=== PATIENT | male | born 1980 | race Hispanic/Latino ===

== ENCOUNTER 2017-10-10 04:11 | Emergency (ER) | payer SELFPAY ==
[2017-10-10] MEDS ORDERED: NA CHLORIDE 0.9% 1,000 ML ONE ×2 (05:17→09:37)
[2017-10-10] MEDS ORDERED: LIDOCAINE VISCOUS 2% SOLN 15 ML UDC ONE (05:17)
[2017-10-10] MEDS ORDERED: MAGNE/ALUM HYDROXD 30 ML UCUP ONE (05:17)
[2017-10-10 05:19] LABS: Absolute Lymphocytes (CBC) 2.6 K/uL (0.7-4.9); Absolute Neutrophil 11.2 K/uL (1.8-8.0); Basophils % 0.9 % (0-1.3); Eosinophils % 1.3 % (0-4.4); Hematocrit 47.3 % (39.6-49.0); Lymphocytes % 17.4 % (15.3-44.8); MCV 89.3 fL (80-100); MPV 8.8 fL (7.6-11.3); Monocytes % 6.9 % (3.3-12.3)
[2017-10-10 05:25] LABS: Bicarbonate 29 mEq/L (21-31); Glucose Level 93 mg/dL (65-120); Potassium 3.4 mEq/L (3.6-5.0); Sodium Level 141 mEq/L (135-145)
[2017-10-10 05:26] LABS: BUN Blood Urea Nitrogen 13 mg/dL (6-20)
[2017-10-10 05:36] LABS: Alcohol Serum/Plasma < 10 mg/dl
[2017-10-10] MEDS ORDERED: MORPHINE 4 MG/ML SYR ONE ×2 (06:25→09:37)
[2017-10-10] MEDS ORDERED: POTASSIUM 25 MEQ EFFERV TAB ONE (06:26)
[2017-10-10] MEDS ORDERED: CEFTRIAXONE/SWI 1gm 1 GM/10 ML SYR ONE (06:26)
--- NOTE | 2017-10-10 07:04 | EDPHYS ---
Physician Documentation [facility] Name: Manish Flood Age: 36 yrs Sex: Male : 1980 Arrival Date: 10/10/2017 Time: 04:12 Bed 13 Private MD: ED Physician Juan Fields HPI: 10/10 04:40 This 36 yrs old Male presents to ER via Ambulatory with complaints of Feels pkl something in throat after vomiting. 04:40 The patient or guardian reports the patient has a suspected foreign body, Onset: The pkl symptoms/episode began/occurred just prior to arrival, 4 hour(s) ago. Patient said he vomited and felt like something is stuck in the throat. Historical: - Allergies: 04:32 No Known Allergies; bb - Home Meds: 04:32 None [Active]; bb - PMHx: 04:32 None; bb - PSHx: 04:32 Knee surgery; bb - Immunization history:: Adult Immunizations up to date. - Social history:: Smoking status: Patient uses tobacco products, smokes one pack cigarettes per day. Patient uses alcohol, occasionally. Patient/guardian denies using street drugs. ROS: 04:40 Eyes: Negative for injury, pain, redness, and discharge. pkl 04:40 ENT: Positive for sore throat. 04:40 Neck: Negative for stiffness. 04:40 Cardiovascular: Negative for chest pain. 04:40 Respiratory: Negative for cough, shortness of breath. 04:40 Abdomen/GI: Negative for abdominal pain, nausea, vomiting, and diarrhea. 04:40 Back: Negative for acute changes. 04:40 : Negative for urinary symptoms. 04:40 MS/extremity: Negative for acute changes. 04:40 Skin: Negative for rash. 04:40 Neuro: Negative for altered mental status. Exam: 04:40 Head/Face: Normocephalic, atraumatic. Eyes: Pupils equal round and reactive to light, pkl extra-ocular motions intact. Lids and lashes normal. Conjunctiva and sclera are non-icteric and not injected. Cornea within normal limits. Periorbital areas with no swelling, redness, or edema. ENT: Nares patent. No nasal discharge, no septal abnormalities noted. Tympanic membranes are normal and external auditory canals are clear. Oropharynx with no redness, swelling, or masses, exudates, or evidence of obstruction, uvula midline. Mucous membranes moist. Neck: Trachea midline, no thyromegaly or masses palpated, and no cervical lymphadenopathy. Supple, full range of motion without nuchal rigidity, or vertebral point tenderness. No Meningismus. Chest/axilla: Normal chest wall appearance and motion. Nontender with no deformity. No lesions are appreciated. Cardiovascular: Regular rate and rhythm with a normal S1 and S2. No gallops, murmurs, or rubs. Normal PMI, no JVD. No pulse deficits. Respiratory: Lungs have equal breath sounds bilaterally, clear to auscultation and percussion. No rales, rhonchi or wheezes noted. No increased work of breathing, no retractions or nasal flaring. Abdomen/GI: Soft, non-tender, with normal bowel sounds. No distension or tympany. No guarding or rebound. No evidence of tenderness throughout. Back: No spinal tenderness. No costovertebral tenderness. Full range of motion. Skin: Warm, dry with normal turgor. Normal color with no rashes, no lesions, and no evidence of cellulitis. MS/ Extremity: Pulses equal, no cyanosis. Neurovascular intact. Full, normal range of motion. Neuro: Awake and alert, GCS 15, oriented to person, place, time, and situation. Cranial nerves II-XII grossly intact. Motor strength 5/5 in all extremities. Sensory grossly intact. Cerebellar exam normal. Normal gait. Vital Signs: 04:32 BP 121 / 82; Pulse 84; Resp 20 S; Temp 97.9(O); Pulse Ox 100% on R/A; Weight 65.77 kg bb (R); Height 5 ft. 4 in. (162.56 cm) (R); Pain 7/10; 06:26 BP 137 / 87; Pulse 81; Resp 17 S; Pulse Ox 100% on R/A; jd3 04:32 Body Mass Index 24.89 (65.77 kg, 162.56 cm) bb MDM: 04:33 Patient medically screened. pkl 07:02 Data reviewed: vital signs, nurses notes. pk 10/10 04:39 Order name: CBC with Diff; Complete Time: 05:39 pk 10/10 04:39 Order name: Chem 7; Complete Time: 05:39 pk 10/10 04:39 Order name: ETOH Level; Complete Time: 05:39 pkl 10/10 05:41 Order name: CT Soft Tissue Neck W/contr pkl 10/10 06:14 Order name: Strep; Complete Time: 07:05 lp1 10/10 07:00 Order name: Throat Culture EDMS Administered Medications: 05:15 Drug: NS 0.9% 1000 ml Route: IV; Rate: 1000 ml; Site: right antecubital; jd3 05:16 Drug: GI Cocktail without - (Maalox Suspension 30 ml, Lidocaine Liquid 2 % 15 jd3 ml) Route: PO; 07:17 Follow up: Response: No adverse reaction lp1 06:13 Drug: Rocephin - (cefTRIAXone) 1 grams Route: IVPB; Infused Over: 30 mins; Site: right lp1 antecubital; 06:14 Drug: morphine 2 mg Route: IVP; Site: right antecubital; lp1 07:16 Follow up: Response: No adverse reaction; Pain is decreased lp1 06:39 Drug: K-Lyte Effervescent Tablet 25 mEq Route: PO; jd3 07:16 Follow up: Response: No adverse reaction lp1 Disposition: 10/10/17 07:03 Discharged to Home. Impression: Pharyngitis. Possible F.B. in throat. - Condition is Stable. - Prescriptions for Ultram 50 mg Oral Tablet - take 1 tablet by ORAL route every 8 hours As needed; 20 tablet. Zithromax Z- Konstantin 250 mg Oral Tablet - take 1 tablet by ORAL route as directed for 5 days Day 1 - take two (2) tablets one time. Day 2, 3, 4 , 5 take one (1) tablet once daily.; 6 tablet. - Medication Reconciliation Form, Thank You Letter, Antibiotic Education, Prescription Opioid Use form. - Follow up: Onelia Esposito MD; When: 1 - 2 days; Reason: Re-evaluation by your physician. - Problem is new. - Symptoms have improved. Signatures: Dispatcher [employer] EDMS Juan Fields MD MD pkl Hien Carreno RN RN bb Amelia Massey RN RN lp1 Umberto Daley RN RN jd3
--- NOTE | 2017-10-10 07:04 | ER ---
Nurse's Notes [facility] Name: Manish Flood Age: 36 yrs Sex: Male : 1980 Arrival Date: 10/10/2017 Time: 04:12 Bed 13 Private MD: Diagnosis: Pharyngitis. Possible F.B. in throat Presentation: 10/10 04:30 Presenting complaint: Patient states: he was vomiting several hours ago and thinks he bb got something in his throat, able to swallow secretions but it is uncomfortable. Transition of care: patient was not received from another setting of care. Onset of symptoms was October 10, 2017. Care prior to arrival: None. 04:30 Method Of Arrival: Ambulatory bb 04:30 Acuity: ELIANA 4 bb Historical: - Allergies: 04:32 No Known Allergies; bb - Home Meds: 04:32 None [Active]; bb - PMHx: 04:32 None; bb - PSHx: 04:32 Knee surgery; bb - Immunization history:: Adult Immunizations up to date. - Social history:: Smoking status: Patient uses tobacco products, smokes one pack cigarettes per day. Patient uses alcohol, occasionally. Patient/guardian denies using street drugs. Screenin:41 Abuse screen: Denies threats or abuse. Nutritional screening: No deficits noted. jd3 Tuberculosis screening: No symptoms or risk factors identified. Fall Risk None identified. Assessment: 04:39 General: Appears in no apparent distress. uncomfortable, Behavior is cooperative, jd3 appropriate for age, anxious. Pain: Denies pain. Neuro: Level of Consciousness is awake, alert, obeys commands, Oriented to person, place, time, situation. Cardiovascular: Heart tones S1 S2 present Capillary refill < 3 seconds Patient's skin is warm and dry. Respiratory: Airway is patent Respiratory effort is even, unlabored, Respiratory pattern is regular, symmetrical, Breath sounds are clear bilaterally. GI: Abdomen is flat, Bowel sounds present X 4 quads. Abd is soft and non tender X 4 quads. : No signs and/or symptoms were reported regarding the genitourinary system. EENT: No signs and/or symptoms were reported regarding the EENT system. Derm: Skin is intact, Skin is dry, Skin is normal, Skin temperature is warm. Musculoskeletal: Circulation, motion, and sensation intact. Range of motion: intact in all extremities. 05:30 Reassessment: Patient appears in no apparent distress at this time. Patient and/or jd3 family updated on plan of care and expected duration. Pain level reassessed. Patient is alert, oriented x 3, equal unlabored respirations, skin warm/dry/pink. 06:26 Reassessment: Patient appears in no apparent distress at this time. Patient and/or jd3 family updated on plan of care and expected duration. Pain level reassessed. Patient is alert, oriented x 3, equal unlabored respirations, skin warm/dry/pink. Vital Signs: 04:32 BP 121 / 82; Pulse 84; Resp 20 S; Temp 97.9(O); Pulse Ox 100% on R/A; Weight 65.77 kg bb (R); Height 5 ft. 4 in. (162.56 cm) (R); Pain 7/10; 06:26 BP 137 / 87; Pulse 81; Resp 17 S; Pulse Ox 100% on R/A; jd3 04:32 Body Mass Index 24.89 (65.77 kg, 162.56 cm) ED Course: 04:12 Patient arrived in ED. am2 04:32 Triage completed. bb 04:32 Arm band placed on Patient placed in an exam room, on a stretcher, on pulse oximetry. bb Family accompanied patient. 04:33 Juan Fields MD is Attending Physician. pkl 04:39 Umberto Daley, SANAZ is Primary Nurse. jd3 04:42 Patient has correct armband on for positive identification. Bed in low position. Call jd3 light in reach. Side rails up X 1. Adult w/ patient. 04:53 Inserted saline lock: 20 gauge in right antecubital area, using aseptic technique. jd3 Blood collected. 06:24 CT Soft Tissue Neck W/contr In Process Unspecified. EDMS 07:02 Onelia Esposito MD is Referral Physician. pkl 07:10 Report given to Gil YO. jd3 07:15 Amelia Massey, RN is Primary Nurse. lp1 07:15 No provider procedures requiring assistance completed. IV discontinued, intact, lp1 bleeding controlled, No redness/swelling at site. Pressure dressing applied. Administered Medications: 05:15 Drug: NS 0.9% 1000 ml Route: IV; Rate: 1000 ml; Site: right antecubital; jd3 05:16 Drug: GI Cocktail without - (Maalox Suspension 30 ml, Lidocaine Liquid 2 % 15 jd3 ml) Route: PO; 07:17 Follow up: Response: No adverse reaction lp1 06:13 Drug: Rocephin - (cefTRIAXone) 1 grams Route: IVPB; Infused Over: 30 mins; Site: right lp1 antecubital; 06:14 Drug: morphine 2 mg Route: IVP; Site: right antecubital; lp1 07:16 Follow up: Response: No adverse reaction; Pain is decreased lp1 06:39 Drug: K-Lyte Effervescent Tablet 25 mEq Route: PO; jd3 07:16 Follow up: Response: No adverse reaction lp1 Outcome: 07:03 Discharge ordered by . pkleo 07:15 Discharged to home ambulatory, with family. lp1 07:15 Condition: stable 07:15 Discharge instructions given to patient, family, Instructed on discharge instructions, follow up and referral plans. medication usage, Demonstrated understanding of instructions, follow-up care, medications, Prescriptions given X 2. 07:16 Patient left the ED. lp1 Signatures: Dispatcher [employer] EDMS Juan Fields MD MD pkHien Lugo RN Amelia King RN RN lp1 Gema Hardy Jonathon, RN RN jd3
[2017-10-10] MEDS ORDERED: ONDANSETRON 4 MG/2 ML VIAL ONE (09:37)
--- NOTE | 2017-10-10 10:03 | RAD REPORT ---
EXAM DESCRIPTION: CT - Soft Tissue Neck W/Contr - 10/10/2017 9:07 am CLINICAL HISTORY: Dysphagia, neck pain COMPARISON: None. TECHNIQUE: Computed axial tomography of the neck was obtained. 50 cc Isovue-300 administered intrave nously. Coronal and sagittal reconstruction was performedA preliminary report was generated by [employer] and reviewed prior to this dictation All CT scans are performed using dose optimization technique as appropriate and may include automated exposure control or mA/KV adjustment according to patient size. FINDINGS: The pharynx, larynx, tongue base and subglottic trachea appear unremarkable. The parotid, submandibular and thyroid glands appear normal. No lymphadenopathy is seen. 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 Mucus retention cyst is present in the right maxillar y sinus IMPRESSION: No acute abnormality is displayed
== END 2017-10-10 07:16 | disposition home or self-care (01) ==
LOC: ER 04:11
DX: J02.9 Acute pharyngitis, unspecified (principal); F17.210 Nicotine dependence, cigarettes, uncomplicated
CPT/HCPCS: 36415; 70491; 80048; 80320; 85025; 87070; 87081; 96374; 96375; 99284; J0696; J2405; J7030; Q9967